=== PATIENT | female | born 2000 | race Caucasian/White ===

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

== ENCOUNTER 2019-07-28 03:20 | Inpatient (IN) ==
--- OUTSIDE RECORDS SUMMARY | 2019-07-28 03:23 | External Medical Summary | Continuity of Care Document ---
:2000 Author Name Adria Arreaga Address Unavailable Unavailable , Care Team Providers Name Role Phone Unavailable Unavailable Unavailable PCP, UNKNOWN Unavailable Unavailable Problems Active medical history not documented Allergies and Adverse Reactions Allergy history not documented Medications prednisoLONE Sodium Phosphate 30 MG Oral Tablet Disintegrating; parkinson as needed , Whitley Start: 08-Sep-2018 Refills: 0 ProAir RespiClick 108 (90 Base) MCG/ACT Inhalation Aerosol Powder Breath Activated; as directed as needed Whitley Start: 08-Sep-2018 Refills: 0 June FE 08/29 1-20 MG-MCG Oral Tablet; TAKE 1 TABLET DAILY. Whitley Start: 08-Sep-2018 Refills: 0 28 Tablet Pack Procedures Procedures not documented Immunizations Immunizations not documented Family History Grandmother Family history of hypertension (V17.49) (Z82.49) Status: Act perry aunt Family history of polycystic ovarian syndrome (V18.7) (Z84.2 ) Status: Active Grandfather Family history of diabetes mellitus (V18.0) (Z83.3) Status: Active Mother Family history of malignant neoplasm of breast (V16.3) (Z80. 3) Status: Active Grandmother Family history of malignant neoplasm of breast (V16.3) (Z80. 3) Status: Active Plan of Treatment Planned Observations Planned Goals not documented Results No Known Results Results not documented
[2019-07-28] MEDS ORDERED: KETOROLAC 30 MG/ML VIAL IV STA (03:57)
[2019-07-28] MEDS ORDERED: SODIUM CHLORIDE 0.9% 1000ML 1,000 ML IV ONE ×4 (03:57→16:45)
[2019-07-28 04:27] LABS: Basophils # (auto) 0.01 K/uL (0-0.2); Basophils % (auto) 0.1 %; Hematocrit (blood only) 38.6 % (37-47); Hemoglobin 12.6 g/dL (12.0-16.0); Immature Granulocytes # (auto) 0.09 K/uL (0.00-0.02); Immature Granulocytes % (auto) 0.5 %; Lymphocytes % (auto) 3.1 %; Mean Corpuscular Hemoglobin 28.2 pg (25-34); Mean Corpuscular Hgb Conc 32.6 g/dL (32-36); Mean Corpuscular Volume 86.4 fL (80-100); Mean Platelet Volume 10.3 fL (7.4-10.4); Monocytes # (auto) 0.82 K/uL (0.11-0.59); Monocytes % (auto) 4.2 %; Neutrophils # (auto) 17.89 K/uL (1.4-6.5); Neutrophils % (auto) 92.1 %; Platelet Count 233 K/uL (130-400); RDW Coefficient of Variation 14.6 % (11.5-14.5); RDW Standard Deviation 45.8 fL (36.4-46.3); Red Blood Count 4.47 M/uL (4.2-5.4); White Blood Count 19.41 K/uL (4.8-10.8)
[2019-07-28 04:44] LABS: Appearance Urine Cloudy (Clear); Bacteria Urine Automated 4+ (Negative); Bilirubin Urine Negative (Negative); Blood Urine 1+ (Negative); Color Urine Yellow; Epithelial Cell Urine Auto 0-5 /lpf (0-5); Glucose Urine UA Negative (Negative); Ketones Urine 2+ (Negative); Leukocyte Esterase Urine 2+ (Negative); Nitrite Urine Positive (Negative); Protein Urine Trace (Negative); RBC Urine Automated 0-4 /hpf (0-4); Specific Gravity Urine 1.013 (1.000-1.030); Urobilinogen Urine Negative (Negative); WBC Urine Automated >30 /hpf (0-5); pH Urine 5.5 (4.5-7.5)
[2019-07-28 04:47] LABS: Albumin Level 3.4 gm/dl (3.4-5.0); BUN Creatinine Ratio 8.4 (10-20); Calcium 8.7 mg/dl (8.5-10.1); Creatinine Clr Calc Pharmacy 69.7 ml/min; Est GFR (African American) 58.9; Est GFR (Non-African American) 50.9
[2019-07-28 04:50] LABS: Albumin Globulin Ratio 0.8 (0.9-2); Bilirubin,Total 1.7 mg/dl (0.2-1); Globulin 4.3 gm/dl (2.5-4.0); Total Protein 7.7 gm/dl (6.4-8.2)
[2019-07-28] MEDS ORDERED: SULFAMETHOXAZOLE/TRIMETHOPRIM DS 800/160MG TAB PO ONE (05:31)
[2019-07-28 05:53] LABS: Basophils # (auto) 0.01 K/uL (0-0.2); Hematocrit (blood only) 36.3 % (37-47); Hemoglobin 11.7 g/dL (12.0-16.0); Immature Granulocytes # (auto) 0.18 K/uL (0.00-0.02); Immature Granulocytes % (auto) 0.8 %; Lymphocytes # (auto) 0.79 K/uL (1.2-3.4); Lymphocytes % (auto) 3.5 %; Mean Corpuscular Hemoglobin 28.1 pg (25-34); Mean Corpuscular Hgb Conc 32.2 g/dL (32-36); Mean Corpuscular Volume 87.3 fL (80-100); Monocytes # (auto) 1.85 K/uL (0.11-0.59); Monocytes % (auto) 8.2 %; Neutrophils % (auto) 87.5 %; Platelet Count 223 K/uL (130-400); RDW Coefficient of Variation 14.6 % (11.5-14.5); Red Blood Count 4.16 M/uL (4.2-5.4); White Blood Count 22.53 K/uL (4.8-10.8)
[2019-07-28 06:19] LABS: Pregnancy Test, Urine Negative (Negative)
--- NOTE | 2019-07-28 06:38 | History & Physical Report ---
Date of Service July 28, 2019 Assessment & Plan (1) Pyelonephritis: Fevers/Chills/Rigors/right CVA tenderness and +UA, suspect pyelonephritis -Admit to medical floor -Follow cultures -CBC and BMP at 14:00 today -NSS at 125mL/hr x 2 liters -Tylenol as needed for pain or fever -Bactrim DS BID -If patient fails to improve would pursue imaging, CT Present on Admission?: Yes (2) Migraine: History of migraine. No WITT now -Monitor F/E/N - NSS at 125mL/hr x 2 liters, montior electrolytes and replete as needed, regular diet as tolerated Ppx - low risk for DVT Code - Full Dispo - Obs to medical floor Present on Admission?: Yes History of Present Illness Chief Complaint: fever, UTI Primary Care Provider: [facility] Sydney Osullivan is a 18yo C female with history of migraine presenting with possible pyelonephritis. Patient reports fevers at home for the last three days associated with chills/sweats/body aches and rigors. Also with nausea, headache, right suprapubic discomfort and right sided back pain. She denies dysuria/frequency/urgency. Had an episode of urinary incontinence prior to arrival to the ER. Last fever this evening, 104 F. ER Course: Toradol, NSS, Bactrim Allergies Allergy/AdvReac Type Severity Reaction Status Date / Time cefuroxime Allergy Mild Swelling Verified 07/28/19 04:08 and redness Home Medications Home Medications Medication Instructions Recorded Confirmed Type acetaminophen [Tylenol Extra 1,000 mg PO Q6H PRN 07/28/19 07/28/19 History Strength] drospirenone-ethinyl estradiol 1 tab PO DAILY 07/28/19 07/28/19 History ferrous sulfate [iron] 325 mg PO DAILY 07/28/19 07/28/19 History ibuprofen [Motrin IB] 400 mg PO Q6H PRN 07/28/19 07/28/19 History Past Med/Surg History Medical History (Updated 07/28/19 @ 06:35 by Shena Ramsay DO) Asthma (Chronic) childhood asthma. Now resolved Migraines Family History (Updated 07/28/19 @ 03:38 by Dennis Mirza) Other No significant family history Social History (Updated 07/28/19 @ 06:31 by Shena Ramsay DO) Preferred Language: Senegalese Feels Safe at Home: Yes Smoking Status: Never smoker Hx Alcohol Use: No Hx Substance Use: No Review of Systems Review of Systems: All systems reviewed & are unremarkable except as noted in HPI & below +Fevers/chills/nausea +body aches/rigors +Back pain/suprapubic pain Physical Exam Physical Exam: General: patient resting comfortably, NAD,ill in appearance, AA&O x 4 Skin: warm, intact, no rashes or lesions, clammy HEENT: NC/AT, PERRL, EOMI, anicteric sclera, conjunctiva without injection, external ear normal to inspection and nontender, nares patent, slightly dry mucus membranes, dentition intact, no oropharyngeal lesions, neck supple, trachea midline, no LAD, no thyromegaly, no JVD Heart: +S1/S2, regular, tachycardic, no m/r/g Lungs: equal air entry bilaterally, no rales/rhonchi/wheezes Abd: +BS, soft, ND, no masses/organomegaly/ascites, mild right suprapubic discomfort, no rebound/guarding/peritoneal signs, +right CVA tenderness Ext: warm, 2+ pulses in UE/LE bilaterally, no clubbing/cyanosis or edema Neuro: nonfocal, patient AA&O x 4, speech intact, no facial droop, moving all extremities on command with equal strength 5/5 Results & Data Vital Signs (Past 12 Hours) Vital Signs Temp Pulse Resp BP Pulse Ox 07/28/19 06:00 105 H 95/61 L 97 07/28/19 05:30 107 H 99/61 L 96 07/28/19 05:00 112 H 92/58 L 96 07/28/19 04:33 117 H 87/51 L 96 07/28/19 04:26 96 07/28/19 03:24 155 H 23 112/51 L 07/28/19 03:20 37.0 C 154 H 20 112/51 L 96 Laboratory Results Lab Results 07/28/19 07/28/19 07/28/19 Range/Units 04:07 04:07 04:07 WBC (4.8-10.8) K/uL RBC (4.2-5.4) M/uL Hgb (12.0-16.0) g/dL Hct (37-47) % MCV (80-100) fL MCH (25-34) pg MCHC (32-36) g/dL RDW Std Deviation (36.4-46.3) fL RDW Coeff of Mihai (11.5-14.5) % Plt Count (130-400) K/uL MPV (7.4-10.4) fL Immature Gran % (Auto) % Neut % (Auto) % Lymph % (Auto) % [place] % (Auto) % Eos % (Auto) % Baso % (Auto) % Immature Gran # (Auto) (0.00-0.02) K/uL Neut # (Auto) (1.4-6.5) K/uL Lymph # (Auto) (1.2-3.4) K/uL [place] # (Auto) (0.11-0.59) K/uL Eos # (Auto) (0-0.5) K/uL Baso # (Auto) (0-0.2) K/uL Sodium (136-145) mmol/L Potassium (3.5-5.1) mmol/L Chloride (98-107) mmol/L Carbon Dioxide (21-32) mmol/L Anion Gap (3-11) BUN (7-18) mg/dl Creatinine (0.6-1.2) mg/dl Est Cr Clr Drug Dosing ml/min Est GFR ( Amer) Est GFR (Non-Af Amer) BUN/Creatinine Ratio (10-20) Glucose (70-99) mg/dl POC Lactic Acid Earle (0.90-1.70) mmol/L Calcium (8.5-10.1) mg/dl Total Bilirubin (0.2-1) mg/dl AST (15-37) U/L ALT (12-78) U/L Alkaline Phosphatase (45-117) U/L Total Protein (6.4-8.2) gm/dl Albumin (3.4-5.0) gm/dl Globulin (2.5-4.0) gm/dl Albumin/Globulin Ratio (0.9-2) Urine Color Yellow Urine Appearance Cloudy A (Clear) Urine pH 5.5 (4.5-7.5) Ur Specific [place] 1.013 (1.000-1.030) Urine Protein Trace H (Negative) Urine Glucose (UA) Negative (Negative) Urine Ketones 2+ H (Negative) Urine Blood 1+ H (Negative) Urine Nitrite Positive A (Negative) Urine Bilirubin Negative (Negative) Urine Urobilinogen Negative (Negative) Ur Leukocyte Esterase 2+ H (Negative) Urine WBC (Auto) >30 H (0-5) /hpf Urine RBC (Auto) 0-4 (0-4) /hpf U Hyaline Cast (Auto) 1-5 (0-5) /lpf U Epithel Cells (Auto) 0-5 (0-5) /lpf Urine Bacteria (Auto) 4+ H (Negative) Urine Test Negative (Negative) Influenza Type A Ag Neg for Influ A (Neg) Influenza Type B Ag Neg for Influ B (Neg) 07/28/19 07/28/19 07/28/19 Range/Units 04:13 04:14 04:14 WBC 19.41 H (4.8-10.8) K/uL RBC 4.47 (4.2-5.4) M/uL Hgb 12.6 (12.0-16.0) g/dL Hct 38.6 (37-47) % MCV 86.4 (80-100) fL MCH 28.2 (25-34) pg MCHC 32.6 (32-36) g/dL RDW Std Deviation 45.8 (36.4-46.3) fL RDW Coeff of Mihai 14.6 H (11.5-14.5) % Plt Count 233 (130-400) K/uL MPV 10.3 (7.4-10.4) fL Immature Gran % (Auto) 0.5 % Neut % (Auto) 92.1 % Lymph % (Auto) 3.1 % [place] % (Auto) 4.2 % Eos % (Auto) 0.0 % Baso % (Auto) 0.1 % Immature Gran # (Auto) 0.09 H (0.00-0.02) K/uL Neut # (Auto) 17.89 H (1.4-6.5) K/uL Lymph # (Auto) 0.60 L (1.2-3.4) K/uL [place] # (Auto) 0.82 H (0.11-0.59) K/uL Eos # (Auto) 0.00 (0-0.5) K/uL Baso # (Auto) 0.01 (0-0.2) K/uL Sodium 133 L (136-145) mmol/L Potassium 4.0 (3.5-5.1) mmol/L Chloride 103 (98-107) mmol/L Carbon Dioxide 25 (21-32) mmol/L Anion Gap 5.0 (3-11) BUN 12 (7-18) mg/dl Creatinine 1.47 H (0.6-1.2) mg/dl Est Cr Clr Drug Dosing 69.7 ml/min Est GFR ( Amer) 58.9 Est GFR (Non-Af Amer) 50.9 BUN/Creatinine Ratio 8.4 L (10-20) Glucose 121 H (70-99) mg/dl POC Lactic Acid Earle 1.36 (0.90-1.70) mmol/L Calcium 8.7 (8.5-10.1) mg/dl Total Bilirubin 1.7 H (0.2-1) mg/dl AST 20 (15-37) U/L ALT 25 (12-78) U/L Alkaline Phosphatase 79 (45-117) U/L Total Protein 7.7 (6.4-8.2) gm/dl Albumin 3.4 (3.4-5.0) gm/dl Globulin 4.3 H (2.5-4.0) gm/dl Albumin/Globulin Ratio 0.8 L (0.9-2) Urine Color Urine Appearance (Clear) Urine pH (4.5-7.5) Ur Specific [place] (1.000-1.030) Urine Protein (Negative) Urine Glucose (UA) (Negative) Urine Ketones (Negative) Urine Blood (Negative) Urine Nitrite (Negative) Urine Bilirubin (Negative) Urine Urobilinogen (Negative) Ur Leukocyte Esterase (Negative) Urine WBC (Auto) (0-5) /hpf Urine RBC (Auto) (0-4) /hpf U Hyaline Cast (Auto) (0-5) /lpf U Epithel Cells (Auto) (0-5) /lpf Urine Bacteria (Auto) (Negative) Urine Test (Negative) Influenza Type A Ag (Neg) Influenza Type B Ag (Neg) 07/28/19 07/28/19 Range/Units 05:35 05:41 WBC 22.53 H (4.8-10.8) K/uL RBC 4.16 L (4.2-5.4) M/uL Hgb 11.7 L (12.0-16.0) g/dL Hct 36.3 L (37-47) % MCV 87.3 (80-100) fL MCH 28.1 (25-34) pg MCHC 32.2 (32-36) g/dL RDW Std Deviation 47.0 H (36.4-46.3) fL RDW Coeff of Mihai 14.6 H (11.5-14.5) % Plt Count 223 (130-400) K/uL MPV 10.0 (7.4-10.4) fL Immature Gran % (Auto) 0.8 % Neut % (Auto) 87.5 % Lymph % (Auto) 3.5 % [place] % (Auto) 8.2 % Eos % (Auto) 0.0 % Baso % (Auto) 0.0 % Immature Gran # (Auto) 0.18 H (0.00-0.02) K/uL Neut # (Auto) 19.70 H (1.4-6.5) K/uL Lymph # (Auto) 0.79 L (1.2-3.4) K/uL [place] # (Auto) 1.85 H (0.11-0.59) K/uL Eos # (Auto) 0.00 (0-0.5) K/uL Baso # (Auto) 0.01 (0-0.2) K/uL Sodium (136-145) mmol/L Potassium (3.5-5.1) mmol/L Chloride (98-107) mmol/L Carbon Dioxide (21-32) mmol/L Anion Gap (3-11) BUN (7-18) mg/dl Creatinine (0.6-1.2) mg/dl Est Cr Clr Drug Dosing ml/min Est GFR ( Amer) Est GFR (Non-Af Amer) BUN/Creatinine Ratio (10-20) Glucose (70-99) mg/dl POC Lactic Acid Earle 0.90 (0.90-1.70) mmol/L Calcium (8.5-10.1) mg/dl Total Bilirubin (0.2-1) mg/dl AST (15-37) U/L ALT (12-78) U/L Alkaline Phosphatase (45-117) U/L Total Protein (6.4-8.2) gm/dl Albumin (3.4-5.0) gm/dl Globulin (2.5-4.0) gm/dl Albumin/Globulin Ratio (0.9-2) Urine Color Urine Appearance (Clear) Urine pH (4.5-7.5) Ur Specific [place] (1.000-1.030) Urine Protein (Negative) Urine Glucose (UA) (Negative) Urine Ketones (Negative) Urine Blood (Negative) Urine Nitrite (Negative) Urine Bilirubin (Negative) Urine Urobilinogen (Negative) Ur Leukocyte Esterase (Negative) Urine WBC (Auto) (0-5) /hpf Urine RBC (Auto) (0-4) /hpf U Hyaline Cast (Auto) (0-5) /lpf U Epithel Cells (Auto) (0-5) /lpf Urine Bacteria (Auto) (Negative) Urine Test (Negative) Influenza Type A Ag (Neg) Influenza Type B Ag (Neg) Diagnostic Findings CXR - no acute process Code Status & VTE Plan Code Status FULL PG Care Time/CCT Total # of Minutes Spent Total Time Spent with Patient: Total time spent is greater than 50% in coordination of care (as documented) at patient's floor/unit and/or counseling patient:
--- NOTE | 2019-07-28 07:20 | XRay Report ---
XR chest 1V portable HISTORY: Sepsis COMPARISON: Chest 05/07/2017. FINDINGS: The lungs are clear. Cardiac silhouette is normal in size. No pleural effusions. No pneumot horax. IMPRESSION: No acute process. ACT 112: Negative or not required by law. Electronically signed by: Alexey Trevizo M.D. 07/28/2019 7:19 AM
--- NOTE | 2019-07-28 07:25 | Emergency Department Note ---
Entered by Dennis Mirza acting as a scribe for Suzy Weir DO History of Present Illness General Chief complaint: Flu Like Symptoms Stated complaint: illness Time Seen by Provider: 07/28/19 03:22 Source: patient History of Present Illness Onset (ago): day(s) 3 Pain Consistency: + constant Maximum Pain Intensity: 5 Quality: + other (fever) Associated symptoms: + other (Positive for chills, dizziness, vomiting, urinary incontinence, headache, and sensitivity to light. Negative for sneezing and a cough.) The patient is a 18 year old female who presents to the emergency department with complaints of a constant fever beginning three days ago. The patient states that she has had a fever for the last three days that reached a high of 102. She notes that she woke up thirty minutes ago with a high fever and chills. She reports that she then became dizzy while waiting for the uber to the emergency department. The patient states that she then had an episode of vomiting and she notes that she had urinary incontinence at that time. She also complains of a headache and sensitivity to light. She denies any sneezing and coughing. She reports that she has been taking Tylenol and Motrin with no relief of her symptoms. The patient states that she has a history of migraines. She denies any known sick contacts. Home Medications Home Medications Medication Instructions Recorded Confirmed Type acetaminophen [Tylenol Extra 1,000 mg PO Q6H PRN 07/28/19 07/28/19 History Strength] drospirenone-ethinyl estradiol 1 tab PO DAILY 07/28/19 07/28/19 History ferrous sulfate [iron] 325 mg PO DAILY 07/28/19 07/28/19 History ibuprofen [Motrin IB] 400 mg PO Q6H PRN 07/28/19 07/28/19 History Allergies Allergy/AdvReac Type Severity Reaction Status Date / Time cefuroxime Allergy Mild Swelling Verified 07/28/19 04:08 and redness Past Med/Surg History Medical History (Updated 07/28/19 @ 06:35 by Shena Ramsay DO) Asthma (Chronic) childhood asthma. Now resolved Migraines Family History (Updated 07/28/19 @ 03:38 by Dennis Mirza) Other No significant family history Social History (Updated 07/28/19 @ 06:31 by ARON Villareal Preferred Language: Ghanaian Communication Ability: Effective Chain Builder Required: No Beliefs That Will Affect Care: None Current Living Situation: Other Current Living Situation Comment: roommate at [employer] Other Information That Helps Us Care for You: No Feels Safe at Home: Yes Safety Concerns: Feels Safe At This Time Smoking Status: Never smoker Do You Dip or Chew Tobacco: No ; Second Hand Exposure: No ; Tobacco Cessation Education Requested by Patient: No Hx Alcohol Use: No Hx Substance Use: No Review of Systems See HPI for pertinent positives & negatives. and A total of 10 systems reviewed and were otherwise negative Physical Exam Vital Signs Vital Signs - 24 hr 07/28/19 03:20 07/28/19 03:24 07/28/19 04:26 Temperature 37.0 C Temperature Source Oral Pulse Rate 154 H 155 H Pulse Rate from SpO2 Sensor Respiratory Rate 20 23 Respiratory Depth Normal Blood Pressure 112/51 L 112/51 L Blood Pressure Mean 71 63 Pulse Oximetry 96 96 Oxygen Delivery Method Room Air Room Air Sepsis Recent Fever Within 48 Hours Yes Sepsis New/Unexplained Change in Mental Status No Sepsis Action Taken by Nursing No Action Required 07/28/19 04:33 07/28/19 05:00 07/28/19 05:30 Temperature Temperature Source Pulse Rate 117 H 112 H 107 H Pulse Rate from SpO2 Sensor 117 H 112 H 107 H Respiratory Rate Respiratory Depth Blood Pressure 87/51 L 92/58 L 99/61 L Blood Pressure Mean 62 70 74 Pulse Oximetry 96 96 96 Oxygen Delivery Method Sepsis Recent Fever Within 48 Hours Sepsis New/Unexplained Change in Mental Status Sepsis Action Taken by Nursing 07/28/19 06:00 Temperature Temperature Source Pulse Rate 105 H Pulse Rate from SpO2 Sensor 106 H Respiratory Rate Respiratory Depth Blood Pressure 95/61 L Blood Pressure Mean 81 Pulse Oximetry 97 Oxygen Delivery Method Sepsis Recent Fever Within 48 Hours Sepsis New/Unexplained Change in Mental Status Sepsis Action Taken by Nursing HEENT: Head - normocephalic and atraumatic Pupils are equal, round, and reactive to light. Extraocular eye muscles are intact, and sclera are anicteric. Nose - moist nasal mucosa without discharge. Mouth - moist buccal mucosa. Oropharynx is nonerythematous and there is no tonsillar exudate or edema noted. Neck: Supple; no cervical lymphadenopathy or nuchal rigidity Heart: Regular rhythm and tachycardic. There is a normal S1 and S2 with no murmurs, clicks, or gallops appreciated. Lungs: Clear to auscultation bilaterally with no wheezes, rales, or rhonchi. Abdomen: Soft, completely nontender, nondistended, with good bowel sounds. There are no palpable pulsatile masses or hepatosplenomegaly. There is no guarding, rigidity, or rebound noted. Extremities: No evidence of cyanosis, clubbing, or edema. There are easily palpable peripheral pulses. Skin: warm with good turgor and no rashes, diaphoretic Course Course 0328: The patient was evaluated in room B9. A complete history and physical examination were performed. Nursing notes and previous electronic medical records were reviewed. IV lock was established and labs were drawn as above. A septic protocol was performed. 0421: Sodium Chloride 1000 mls @ 999 mls/hr IV, Ketorolac Tromethamine 30mg IV 0457: I rechecked the patient. Her heart rate is down. She is feeling better and is drinking water. She will receive another liter of saline. 0535: I reevaluated the patient. She is asleep. I woke her up and she is feeling somewhat better. 0546: I rechecked the patient. Her lactic went from 1.36 to 0.9. 0548: Trimethoprim/Sulfamethoxazole 1 tab PO, Sodium Chloride 1000 mls @ 999 mls/hr IV. The patient's repeat white blood cell count had increased from 19,000-22,000. 0605: Upon reevaluation, the patient is stable. I discussed the findings and the treatment plan with the patient. She expresses agreement and understanding. I spoke with Dr. Ramsay of the [facility]. The patient will be evaluated for further management. Consultations Consultation #1: I reviewed the patient's case with Dr. Ramsay - Hospitalist, [facility]. She will evaluate the patient for further management. Time: 06:05 Administered Medications Discontinued Medications Sodium Chloride (Nss 1000ml) 1,000 mls @ 999 mls/hr IV .Q1H1M ONE Stop: 07/28/19 04:57 Last Infusion: 07/28/19 05:23 Dose: 0 mls/hr Documented by: [id number] Admin: 07/28/19 04:21 Dose: 999 mls/hr Documented by: [id number] Sodium Chloride (Nss 1000ml) 1,000 mls @ 999 mls/hr IV .Q1H1M ONE Stop: 07/28/19 06:35 Last Admin: 07/28/19 05:48 Dose: 999 mls/hr Documented by: [id number] Ketorolac Tromethamine (Toradol) 30 mg IV NOW STA Stop: 07/28/19 03:58 Last Admin: 07/28/19 04:21 Dose: 30 mg Documented by: [id number] Trimethoprim/Sulfamethoxazole (Septra Ds 800/160mg Tab) 1 tab PO NOW ONE Stop: 07/28/19 05:32 Last Admin: 07/28/19 05:48 Dose: 1 tab Documented by: [id number] Critical Care Time Critical Care Time: Yes Total Critical Care Time: 70 I have personally spent 70 minutes of critical care time in the direct management of this patient. This includes bedside care, interpretation of diagnostic studies, and testing, discussion with consultants, patient, and family members, and other required patient management activities. This 70 minutes is in excess of all separately billable procedures. Medical Decision Making Differential Diagnosis Differential diagnoses include: sepsis, influenza, pneumonia, UTI, gastritis, and meningitis. Medical Records Attestation: I reviewed the patient's medical records. Home Medications Current Medication List: was personally reviewed by me Laboratory Data Attestation: I reviewed the patient's lab results. Result diagrams: 07/28/19 05:35 07/28/19 04:14 Lab Results 07/28/19 07/28/19 07/28/19 Range/Units 04:07 04:07 04:07 WBC (4.8-10.8) K/uL RBC (4.2-5.4) M/uL Hgb (12.0-16.0) g/dL Hct (37-47) % MCV (80-100) fL MCH (25-34) pg MCHC (32-36) g/dL RDW Std Deviation (36.4-46.3) fL RDW Coeff of Mihai (11.5-14.5) % Plt Count (130-400) K/uL MPV (7.4-10.4) fL Immature Gran % (Auto) % Neut % (Auto) % Lymph % (Auto) % Chester % (Auto) % Eos % (Auto) % Baso % (Auto) % Immature Gran # (Auto) (0.00-0.02) K/uL Neut # (Auto) (1.4-6.5) K/uL Lymph # (Auto) (1.2-3.4) K/uL Chester # (Auto) (0.11-0.59) K/uL Eos # (Auto) (0-0.5) K/uL Baso # (Auto) (0-0.2) K/uL Sodium (136-145) mmol/L Potassium (3.5-5.1) mmol/L Chloride (98-107) mmol/L Carbon Dioxide (21-32) mmol/L Anion Gap (3-11) BUN (7-18) mg/dl Creatinine (0.6-1.2) mg/dl Est Cr Clr Drug Dosing ml/min Est GFR ( Amer) Est GFR (Non-Af Amer) BUN/Creatinine Ratio (10-20) Glucose (70-99) mg/dl POC Lactic Acid Earle (0.90-1.70) mmol/L Calcium (8.5-10.1) mg/dl Total Bilirubin (0.2-1) mg/dl AST (15-37) U/L ALT (12-78) U/L Alkaline Phosphatase (45-117) U/L Total Protein (6.4-8.2) gm/dl Albumin (3.4-5.0) gm/dl Globulin (2.5-4.0) gm/dl Albumin/Globulin Ratio (0.9-2) Urine Color Yellow Urine Appearance Cloudy A (Clear) Urine pH 5.5 (4.5-7.5) Ur Specific [place] 1.013 (1.000-1.030) Urine Protein Trace H (Negative) Urine Glucose (UA) Negative (Negative) Urine Ketones 2+ H (Negative) Urine Blood 1+ H (Negative) Urine Nitrite Positive A (Negative) Urine Bilirubin Negative (Negative) Urine Urobilinogen Negative (Negative) Ur Leukocyte Esterase 2+ H (Negative) Urine WBC (Auto) >30 H (0-5) /hpf Urine RBC (Auto) 0-4 (0-4) /hpf U Hyaline Cast (Auto) 1-5 (0-5) /lpf U Epithel Cells (Auto) 0-5 (0-5) /lpf Urine Bacteria (Auto) 4+ H (Negative) Urine Test Negative (Negative) Influenza Type A Ag Neg for Influ A (Neg) Influenza Type B Ag Neg for Influ B (Neg) 07/28/19 07/28/19 07/28/19 Range/Units 04:13 04:14 04:14 WBC 19.41 H (4.8-10.8) K/uL RBC 4.47 (4.2-5.4) M/uL Hgb 12.6 (12.0-16.0) g/dL Hct 38.6 (37-47) % MCV 86.4 (80-100) fL MCH 28.2 (25-34) pg MCHC 32.6 (32-36) g/dL RDW Std Deviation 45.8 (36.4-46.3) fL RDW Coeff of Mihai 14.6 H (11.5-14.5) % Plt Count 233 (130-400) K/uL MPV 10.3 (7.4-10.4) fL Immature Gran % (Auto) 0.5 % Neut % (Auto) 92.1 % Lymph % (Auto) 3.1 % Chester % (Auto) 4.2 % Eos % (Auto) 0.0 % Baso % (Auto) 0.1 % Immature Gran # (Auto) 0.09 H (0.00-0.02) K/uL Neut # (Auto) 17.89 H (1.4-6.5) K/uL Lymph # (Auto) 0.60 L (1.2-3.4) K/uL Chester # (Auto) 0.82 H (0.11-0.59) K/uL Eos # (Auto) 0.00 (0-0.5) K/uL Baso # (Auto) 0.01 (0-0.2) K/uL Sodium 133 L (136-145) mmol/L Potassium 4.0 (3.5-5.1) mmol/L Chloride 103 (98-107) mmol/L Carbon Dioxide 25 (21-32) mmol/L Anion Gap 5.0 (3-11) BUN 12 (7-18) mg/dl Creatinine 1.47 H (0.6-1.2) mg/dl Est Cr Clr Drug Dosing 69.7 ml/min Est GFR ( Amer) 58.9 Est GFR (Non-Af Amer) 50.9 BUN/Creatinine Ratio 8.4 L (10-20) Glucose 121 H (70-99) mg/dl POC Lactic Acid Earle 1.36 (0.90-1.70) mmol/L Calcium 8.7 (8.5-10.1) mg/dl Total Bilirubin 1.7 H (0.2-1) mg/dl AST 20 (15-37) U/L ALT 25 (12-78) U/L Alkaline Phosphatase 79 (45-117) U/L Total Protein 7.7 (6.4-8.2) gm/dl Albumin 3.4 (3.4-5.0) gm/dl Globulin 4.3 H (2.5-4.0) gm/dl Albumin/Globulin Ratio 0.8 L (0.9-2) Urine Color Urine Appearance (Clear) Urine pH (4.5-7.5) Ur Specific [place] (1.000-1.030) Urine Protein (Negative) Urine Glucose (UA) (Negative) Urine Ketones (Negative) Urine Blood (Negative) Urine Nitrite (Negative) Urine Bilirubin (Negative) Urine Urobilinogen (Negative) Ur Leukocyte Esterase (Negative) Urine WBC (Auto) (0-5) /hpf Urine RBC (Auto) (0-4) /hpf U Hyaline Cast (Auto) (0-5) /lpf U Epithel Cells (Auto) (0-5) /lpf Urine Bacteria (Auto) (Negative) Urine Test (Negative) Influenza Type A Ag (Neg) Influenza Type B Ag (Neg) 07/28/19 07/28/19 Range/Units 05:35 05:41 WBC 22.53 H (4.8-10.8) K/uL RBC 4.16 L (4.2-5.4) M/uL Hgb 11.7 L (12.0-16.0) g/dL Hct 36.3 L (37-47) % MCV 87.3 (80-100) fL MCH 28.1 (25-34) pg MCHC 32.2 (32-36) g/dL RDW Std Deviation 47.0 H (36.4-46.3) fL RDW Coeff of Mihai 14.6 H (11.5-14.5) % Plt Count 223 (130-400) K/uL MPV 10.0 (7.4-10.4) fL Immature Gran % (Auto) 0.8 % Neut % (Auto) 87.5 % Lymph % (Auto) 3.5 % Chester % (Auto) 8.2 % Eos % (Auto) 0.0 % Baso % (Auto) 0.0 % Immature Gran # (Auto) 0.18 H (0.00-0.02) K/uL Neut # (Auto) 19.70 H (1.4-6.5) K/uL Lymph # (Auto) 0.79 L (1.2-3.4) K/uL Chester # (Auto) 1.85 H (0.11-0.59) K/uL Eos # (Auto) 0.00 (0-0.5) K/uL Baso # (Auto) 0.01 (0-0.2) K/uL Sodium (136-145) mmol/L Potassium (3.5-5.1) mmol/L Chloride (98-107) mmol/L Carbon Dioxide (21-32) mmol/L Anion Gap (3-11) BUN (7-18) mg/dl Creatinine (0.6-1.2) mg/dl Est Cr Clr Drug Dosing ml/min Est GFR ( Amer) Est GFR (Non-Af Amer) BUN/Creatinine Ratio (10-20) Glucose (70-99) mg/dl POC Lactic Acid Earle 0.90 (0.90-1.70) mmol/L Calcium (8.5-10.1) mg/dl Total Bilirubin (0.2-1) mg/dl AST (15-37) U/L ALT (12-78) U/L Alkaline Phosphatase (45-117) U/L Total Protein (6.4-8.2) gm/dl Albumin (3.4-5.0) gm/dl Globulin (2.5-4.0) gm/dl Albumin/Globulin Ratio (0.9-2) Urine Color Urine Appearance (Clear) Urine pH (4.5-7.5) Ur Specific [place] (1.000-1.030) Urine Protein (Negative) Urine Glucose (UA) (Negative) Urine Ketones (Negative) Urine Blood (Negative) Urine Nitrite (Negative) Urine Bilirubin (Negative) Urine Urobilinogen (Negative) Ur Leukocyte Esterase (Negative) Urine WBC (Auto) (0-5) /hpf Urine RBC (Auto) (0-4) /hpf U Hyaline Cast (Auto) (0-5) /lpf U Epithel Cells (Auto) (0-5) /lpf Urine Bacteria (Auto) (Negative) Urine Test (Negative) Influenza Type A Ag (Neg) Influenza Type B Ag (Neg) Imaging Data Attestation: I personally reviewed and interpreted this imaging study as follows: My Impression: CHEST X-RAY: No pulmonary infiltrate or consolidation. ECG Data Attestation: I personally reviewed and interpreted this ECG as follows: Indication: + vomiting Rate (beats per minute): 148 Rhythm: + sinus tachycardia ECG ST segments: no ST depression and no ST elevation ECG Findings: no PACs and no PVCs Blood Pressure Blood Pressure Findings: Low blood pressure Blood Pressure Disposition: further management by hospitalist ALEXIA Prince The patient is a 18 year old female who presents to the emergency department with complaints of a constant fever beginning three days ago. The patient describes diffuse body aches and a headache. The patient had decided to come to the emergency department because of her symptoms. While she was waiting for an Uber, she had an episode of vomiting and urinary incontinence. At that point, EMS was called and she was transported here. Upon arrival, the patient was extremely tachycardic and became hypotensive. She was given 2 L of normal saline solution. Her initial lactic acid was 1.3 and initial white blood cell count was 19,000. Urinalysis revealed that she has evidence of urinary tract infection. Flu testing was negative. Chest x-ray was negative. The patient remained in the emergency department for some time and the lactic acid and white blood cell count were repeated. The lactate came down but the white cell count increased. The patient has an allergy to cephalosporins. She received an oral dose of Bactrim. The patient's creatinine more than doubled and her presentation was concerning for sepsis. I discussed the case with the [facility] Hospitalist and they will evaluate for further management. Impression & Plan Sepsis, UTI (urinary tract infection), Hypotension, Renal insufficiency Discharge Plan Visit Data Chief Complaint: Flu Like Symptoms Stated Complaint: illness ED Provider: Suzy Weir Discharge Problem: Sepsis, UTI (urinary tract infection), Hypotension, Renal insufficiency Patient Disposition: Being Evaluated by Hospitalist Discharge Instructions Interventions: ED Discharge Assessment Last Done: 07/28/19 06:37 Discharge Problem: Sepsis Qualifiers: Sepsis type: sepsis due to unspecified organism Sepsis acute organ dysfunction status: unspecified Qualified Code(s): A41.9 - Sepsis, unspecified organism UTI (urinary tract infection) Qualifiers: Urinary tract infection type: site unspecified Hematuria presence: without hematuria Qualified Code(s): N39.0 - Urinary tract infection, site not specified Hypotension Qualifiers: Hypotension type: unspecified hypotension type Qualified Code(s): I95.9 - Hypotension, unspecified The scribe's documentation has been prepared under my direction and personally reviewed by me in its entirety. I confirm that the note above accurately reflects all work, treatment, procedures, and medical decision making performed by me.
[2019-07-28] MEDS: SODIUM CHLORIDE 0.9% 1000ML 1,000 ML IV SCH ×2 (07:44→12:10)
[2019-07-28] MEDS: FERROUS SULFATE 325 MG TAB PO SCH (08:36)
[2019-07-28] MEDS: ERTAPENEM SODIUM 1,000 MG in SODIUM CHLORIDE 0.9% 50 ML IV SCH (12:10)
[2019-07-28] MEDS: ACETAMINOPHEN 500 MG TAB PO PRN ×2 (12:48→19:43)
--- NOTE | 2019-07-28 13:20 | Ultrasound Report ---
RENAL ULTRASOUND CLINICAL HISTORY: Right flank pain. COMPARISON STUDY: None. TECHNIQUE: Sonography of the kidneys and the urinary bladder was performed. FINDINGS: The right kidney measures 11.5 cm in maximal dimension and the left measures 13 cm. There i s no hydronephrosis. No calculi or masses are identified. Renal echogenicity, size and cortical thick ness are normal. There is no renal abscess. Bladder is suboptimally assessed given underdistention bu t no abnormalities identified. IMPRESSION: Unremarkable renal ultrasound. No hydronephrosis. ACT 112: Negative or not required by law. Electronically signed by: Ran Brice M.D. 07/28/2019 1:19 PM
[2019-07-28 14:37] LABS: Basophils # (auto) 0.01 K/uL (0-0.2); Basophils % (auto) 0.1 %; Eosinophils # (auto) 0.02 K/uL (0-0.5); Eosinophils % (auto) 0.1 %; Hematocrit (blood only) 32.9 % (37-47); Hemoglobin 10.7 g/dL (12.0-16.0); Immature Granulocytes # (auto) 0.02 K/uL (0.00-0.02); Immature Granulocytes % (auto) 0.1 %; Lymphocytes # (auto) 0.88 K/uL (1.2-3.4); Lymphocytes % (auto) 6.5 %; Mean Corpuscular Hemoglobin 27.8 pg (25-34); Mean Corpuscular Hgb Conc 32.5 g/dL (32-36); Mean Corpuscular Volume 85.5 fL (80-100); Mean Platelet Volume 10.2 fL (7.4-10.4); Monocytes # (auto) 0.36 K/uL (0.11-0.59); Monocytes % (auto) 2.7 %; Neutrophils % (auto) 90.5 %; Platelet Count 184 K/uL (130-400); RDW Coefficient of Variation 14.9 % (11.5-14.5); RDW Standard Deviation 46.6 fL (36.4-46.3); Red Blood Count 3.85 M/uL (4.2-5.4); White Blood Count 13.49 K/uL (4.8-10.8)
[2019-07-28 15:03] LABS: BUN Creatinine Ratio 14.1 (10-20); Calcium 8.9 mg/dl (8.5-10.1); Creatinine Clr Calc Pharmacy 102.3 ml/min; Est GFR (African American) 96.2; Potassium 4.1 mmol/L (3.5-5.1)
[2019-07-28] MEDS ORDERED: Nursing to Pharmacy Communication ONE (16:28)
[2019-07-28] MEDS: IBUPROFEN 800 MG TAB PO PRN (17:19)
[2019-07-28] MEDS: ALBUTEROL 0.083% NEBU SOLN 3 ML VIAL NEB PRN (17:50)
[2019-07-28] MEDS ORDERED: SULFAMETHOXAZOLE/TRIMETHOPRIM DS 800/160MG TAB PO SCH (18:00)
--- NOTE | 2019-07-28 18:35 | Hospitalist Progress Note ---
Date of Service July 28, 2019 Assessment & Plan (1) Pyelonephritis: Right sided pyelonephritis. With sepsis. Broaden antibiotics to ertapenem (using such due to cephalosporin allergy) and daptomycin IV (to cover for possibility of enterococcus). Gave additional saline boluses through the day today due to low-normal BP in setting of sepsis. Continue supportive care. Counseled patient that she likely will feel poorly at least for another 48 hours before starting to improve. Follow blood/urine cx's. In light of sepsis, low-normal BPs, etc will fully admit from observation status & place on telemetry. (2) Sepsis: Borderline severe sepsis. Source - urine (UTI/pyelo). No pneumonia or influenza based on testing this am. s/p 2 fluid boluses today. Continue copious hydration. BPs are low-normal but repeat BMP and CBC this afternoon are improved including MARY. Broad-spectrum IV antibiotics. Follow cultures. Low threshold for higher level of care with any worsening. Pt complained of mild dyspnea and chest tightness this evening; will repeat her cxr to ensure no pneumonia or other pathology. Rechecking flu but obtaining PCR test. (3) Hypotension: as above in "pyelonephritis" and "sepsis" (4) Acute kidney injury: Improved/resolved with fluids & supportive care. BMP am. Renal u/s w/o obstruction or stones. (5) Migraine: imitrex 50mg po q2h prn motrin 800mg q6h prn tylenol prn (6) Asthma: Dyspnea, chest tightness could be her asthma. Albuterol prn. Patient started on OCPs 3-4 days ago thus limited # of doses. Doubt PE. However, if any pulmonary symptoms worsen consider CTA chest. EKG this am with sinus tach only. (7) Total bilirubin, elevated: Could be Gilbert's. Repeat later in stay. No signs/symptoms of biliary tract pathology. (8) DVT prophylaxis: in light of OCP use - lovenox 40mg daily mother updated by phone at 7pm, 07/28/19 (permission obtained from patient to speak with mother) plan of care signed out to geographic information system surveyor physician patient to be admitted to full admission status Subjective Pt seen multiple times today. First visit was on late AM rounds. Was sitting in bed watching TV; boyfriend at bedside. c/o mild headache at that time and mild right flank pain. [place] better than at time of ER presentation. Appetite is poor however. Saw patient later in afternoon. c/o myalgias, worsening headache, rigors, and simply feeling poorly. Gave 2 saline boluses throughout the day today due to low-normal BPs in the 90- 95 range. Urine quite concentrated per patient. Labs were repeated - Cr normalized, WBC count improved. Renal u/s w/o obstruction or obvious stones. Pt reports taking meds for migraine headaches about 1x/month. She also started on OCPs about 3-4 days ago for menorrhagia. She previously took an antidepressant but is no longer doing so. Right flank pain started on Thursday of this week. Review of Systems Constitutional: + fever, + chills, + body aches, + fatigue and + anorexia Respiratory: + cough and + dyspnea (mild - started this evening) Cardiovascular: + chest pain (tightness - worse with cough) Gastrointestinal: + abdominal pain (right flank) and + nausea Genitourinary: no dysuria and no hematuria Physical Exam Constitutional: + acute distress (rigors, feels poorly) and + ill appearing; no altered mental status ENMT: Mouth: + dry oral mucous membranes Respiratory: normal respiratory effort, lungs clear to auscultation Cardiovascular: Rate/Rhythm: regular rhythm and + tachycardic Heart Sounds: normal S1 and normal S2; no murmur Vessels: posterior tibial pulses present and dorsalis pedis pulses present; no JVD Extremities: no edema Gastrointestinal (Abdomen): Inspection/Auscultation: normal bowel sounds; abdomen not distended Percussion/Palpation: + abdomen tender (right flank (mild)) and abdomen soft; no hepatosplenomegaly Skin: flushed Psychiatric: A+Ox3, euthymic affect Results & Data Vital Signs (Past 12 Hours) Vital Signs Temp Pulse Pulse Resp BP Pulse Ox 07/28/19 17:52 121 H 22 93 07/28/19 15:53 37.0 C 91 H 18 95/61 L 97 07/28/19 06:48 36.9 C 108 H 18 94/60 L 97 Laboratory Results Laboratory Results - last 24 hr 07/28/19 07/28/19 07/28/19 04:07 04:07 04:07 WBC RBC Hgb Hct MCV MCH MCHC RDW Std Deviation RDW Coeff of Mihai Plt Count MPV Immature Gran % (Auto) Neut % (Auto) Lymph % (Auto) Turner % (Auto) Eos % (Auto) Baso % (Auto) Immature Gran # (Auto) Neut # (Auto) Lymph # (Auto) Turner # (Auto) Eos # (Auto) Baso # (Auto) Sodium Potassium Chloride Carbon Dioxide Anion Gap BUN Creatinine Est Cr Clr Drug Dosing Est GFR ( Amer) Est GFR (Non-Af Amer) BUN/Creatinine Ratio Glucose POC Lactic Acid Earle Calcium Total Bilirubin AST ALT Alkaline Phosphatase Total Protein Albumin Globulin Albumin/Globulin Ratio Urine Color Yellow Urine Appearance Cloudy A Urine pH 5.5 Ur Specific Dameron 1.013 Urine Protein Trace H Urine Glucose (UA) Negative Urine Ketones 2+ H Urine Blood 1+ H Urine Nitrite Positive A Urine Bilirubin Negative Urine Urobilinogen Negative Ur Leukocyte Esterase 2+ H Urine WBC (Auto) >30 H Urine RBC (Auto) 0-4 U Hyaline Cast (Auto) 1-5 U Epithel Cells (Auto) 0-5 Urine Bacteria (Auto) 4+ H Urine Test Negative Influenza Type A Ag Neg for Influ A Influenza Type A (PCR) Influenza Type B Ag Neg for Influ B Influenza Type B (PCR) 07/28/19 07/28/19 07/28/19 04:13 04:14 04:14 WBC 19.41 H RBC 4.47 Hgb 12.6 Hct 38.6 MCV 86.4 MCH 28.2 MCHC 32.6 RDW Std Deviation 45.8 RDW Coeff of Mihai 14.6 H Plt Count 233 MPV 10.3 Immature Gran % (Auto) 0.5 Neut % (Auto) 92.1 Lymph % (Auto) 3.1 Turner % (Auto) 4.2 Eos % (Auto) 0.0 Baso % (Auto) 0.1 Immature Gran # (Auto) 0.09 H Neut # (Auto) 17.89 H Lymph # (Auto) 0.60 L Turner # (Auto) 0.82 H Eos # (Auto) 0.00 Baso # (Auto) 0.01 Sodium 133 L Potassium 4.0 Chloride 103 Carbon Dioxide 25 Anion Gap 5.0 BUN 12 Creatinine 1.47 H Est Cr Clr Drug Dosing 69.7 Est GFR ( Amer) 58.9 Est GFR (Non-Af Amer) 50.9 BUN/Creatinine Ratio 8.4 L Glucose 121 H POC Lactic Acid Earle 1.36 Calcium 8.7 Total Bilirubin 1.7 H AST 20 ALT 25 Alkaline Phosphatase 79 Total Protein 7.7 Albumin 3.4 Globulin 4.3 H Albumin/Globulin Ratio 0.8 L Urine Color Urine Appearance Urine pH Ur Specific Dameron Urine Protein Urine Glucose (UA) Urine Ketones Urine Blood Urine Nitrite Urine Bilirubin Urine Urobilinogen Ur Leukocyte Esterase Urine WBC (Auto) Urine RBC (Auto) U Hyaline Cast (Auto) U Epithel Cells (Auto) Urine Bacteria (Auto) Urine Test Influenza Type A Ag Influenza Type A (PCR) Influenza Type B Ag Influenza Type B (PCR) 07/28/19 07/28/19 07/28/19 05:35 05:41 14:19 WBC 22.53 H RBC 4.16 L Hgb 11.7 L Hct 36.3 L MCV 87.3 MCH 28.1 MCHC 32.2 RDW Std Deviation 47.0 H RDW Coeff of Mihai 14.6 H Plt Count 223 MPV 10.0 Immature Gran % (Auto) 0.8 Neut % (Auto) 87.5 Lymph % (Auto) 3.5 Turner % (Auto) 8.2 Eos % (Auto) 0.0 Baso % (Auto) 0.0 Immature Gran # (Auto) 0.18 H Neut # (Auto) 19.70 H Lymph # (Auto) 0.79 L Turner # (Auto) 1.85 H Eos # (Auto) 0.00 Baso # (Auto) 0.01 Sodium 136 Potassium 4.1 Chloride 107 Carbon Dioxide 25 Anion Gap 5.0 BUN 14 Creatinine 0.98 D Est Cr Clr Drug Dosing 102.3 Est GFR ( Amer) 96.2 Est GFR (Non-Af Amer) 83.0 BUN/Creatinine Ratio 14.1 Glucose 129 H POC Lactic Acid Earle 0.90 Calcium 8.9 Total Bilirubin AST ALT Alkaline Phosphatase Total Protein Albumin Globulin Albumin/Globulin Ratio Urine Color Urine Appearance Urine pH Ur Specific Dameron Urine Protein Urine Glucose (UA) Urine Ketones Urine Blood Urine Nitrite Urine Bilirubin Urine Urobilinogen Ur Leukocyte Esterase Urine WBC (Auto) Urine RBC (Auto) U Hyaline Cast (Auto) U Epithel Cells (Auto) Urine Bacteria (Auto) Urine Test Influenza Type A Ag Influenza Type A (PCR) Influenza Type B Ag Influenza Type B (PCR) 07/28/19 07/28/19 14:19 19:07 WBC 13.49 H RBC 3.85 L Hgb 10.7 L Hct 32.9 L MCV 85.5 MCH 27.8 MCHC 32.5 RDW Std Deviation 46.6 H RDW Coeff of Mihai 14.9 H Plt Count 184 MPV 10.2 Immature Gran % (Auto) 0.1 Neut % (Auto) 90.5 Lymph % (Auto) 6.5 Turner % (Auto) 2.7 Eos % (Auto) 0.1 Baso % (Auto) 0.1 Immature Gran # (Auto) 0.02 Neut # (Auto) 12.20 H Lymph # (Auto) 0.88 L Turner # (Auto) 0.36 Eos # (Auto) 0.02 Baso # (Auto) 0.01 Sodium Potassium Chloride Carbon Dioxide Anion Gap BUN Creatinine Est Cr Clr Drug Dosing Est GFR ( Amer) Est GFR (Non-Af Amer) BUN/Creatinine Ratio Glucose POC Lactic Acid Earle Calcium Total Bilirubin AST ALT Alkaline Phosphatase Total Protein Albumin Globulin Albumin/Globulin Ratio Urine Color Urine Appearance Urine pH Ur Specific Dameron Urine Protein Urine Glucose (UA) Urine Ketones Urine Blood Urine Nitrite Urine Bilirubin Urine Urobilinogen Ur Leukocyte Esterase Urine WBC (Auto) Urine RBC (Auto) U Hyaline Cast (Auto) U Epithel Cells (Auto) Urine Bacteria (Auto) Urine Test Influenza Type A Ag Influenza Type A (PCR) Pending Influenza Type B Ag Influenza Type B (PCR) Pending Diagnostic Findings cxr from admission - negative for infiltrates urine/blood cx's negative urine HCG negative PG Care Time/CCT Total # of Minutes Spent Total Time Spent with Patient: Total time spent is greater than 50% in coordination of care (as documented) at patient's floor/unit and/or counseling patient: (1) Migraine Migraine type: other Status migrainosus presence: without status migrainosus Intractability: intractable Qualified Code(s): G43.819 - Other migraine, intractable, without status migrainosus (2) Sepsis Sepsis acute organ dysfunction status: unspecified Sepsis type: sepsis due to unspecified organism Qualified Code(s): A41.9 - Sepsis, unspecified organism (3) Hypotension Hypotension type: unspecified hypotension type Qualified Code(s): I95.9 - Hypotension, unspecified (4) Asthma Asthma severity: mild Asthma persistence: intermittent Asthma complication type: uncomplicated Qualified Code(s): J45.20 - Mild intermittent asthma, uncomplicated
[2019-07-28] MEDS: ENOXAPARIN INJ 40 MG/0.4 ML SYR SQ SCH (19:03)
[2019-07-28] MEDS ORDERED: DAPTOmycin 500 MG VIAL IV SCH (19:30)
--- NOTE | 2019-07-28 19:30 | XRay Report ---
XR chest 2V PA/lateral CLINICAL HISTORY: 18 years-old Female presenting with asthma, cough, fever; eval pneumonia. TECHNIQUE: PA and lateral views of the chest were obtained. COMPARISON: 07/28/2019. FINDINGS: Cardiomediastinal silhouette normal. No focal opacity. No large effusion or pneumothorax. Osseous str uctures normal. Upper abdomen normal. IMPRESSION: No acute cardiopulmonary disease. ACT 112: Negative or not required by law. Electronically signed by: Jas Morris M.D. 07/28/2019 7:29 PM
[2019-07-28] MEDS: SUMAtriptan succinate 50 MG TAB PO PRN (19:39)
[2019-07-28] MEDS: ETHINYL ESTRADIOL PO SCH (19:40)
[2019-07-28] MEDS: DROSPIRENONE PO SCH (19:40)
[2019-07-28 19:50] LABS: Influenza A virus by PCR Neg for Influ A (Neg); Influenza B virus by PCR Neg for Influ B (Neg)
[2019-07-28] MEDS ORDERED: DAPTOmycin 350 MG in SYRINGE 0 ML IV SCH (20:00)
[2019-07-29] MEDS: IBUPROFEN 800 MG TAB PO PRN ×2 (02:50→21:21)
[2019-07-29] MEDS: ACETAMINOPHEN 500 MG TAB PO PRN ×2 (04:34→15:37)
[2019-07-29] MEDS: SUMAtriptan succinate 50 MG TAB PO PRN (04:34)
[2019-07-29 05:54] LABS: Basophils # (auto) 0.01 K/uL (0-0.2); Basophils % (auto) 0.1 %; Eosinophils # (auto) 0.01 K/uL (0-0.5); Eosinophils % (auto) 0.1 %; Hematocrit (blood only) 32.6 % (37-47); Hemoglobin 10.5 g/dL (12.0-16.0); Immature Granulocytes # (auto) 0.05 K/uL (0.00-0.02); Immature Granulocytes % (auto) 0.3 %; Lymphocytes # (auto) 1.02 K/uL (1.2-3.4); Lymphocytes % (auto) 6.6 %; Mean Corpuscular Hemoglobin 27.9 pg (25-34); Mean Corpuscular Hgb Conc 32.2 g/dL (32-36); Mean Corpuscular Volume 86.7 fL (80-100); Mean Platelet Volume 10.2 fL (7.4-10.4); Monocytes # (auto) 1.74 K/uL (0.11-0.59); Monocytes % (auto) 11.2 %; Neutrophils # (auto) 12.66 K/uL (1.4-6.5); Neutrophils % (auto) 81.7 %; Platelet Count 190 K/uL (130-400); RDW Standard Deviation 48.1 fL (36.4-46.3); Red Blood Count 3.76 M/uL (4.2-5.4); White Blood Count 15.49 K/uL (4.8-10.8)
[2019-07-29] MEDS: ALBUTEROL 0.083% NEBU SOLN 3 ML VIAL NEB PRN ×2 (05:54→19:33)
[2019-07-29 06:51] LABS: BUN Creatinine Ratio 10.5 (10-20); Calcium 8.3 mg/dl (8.5-10.1); Creatinine Clr Calc Pharmacy 125.1 ml/min; Est GFR (African American) 121.2; Est GFR (Non-African American) 104.6; Potassium 3.5 mmol/L (3.5-5.1)
[2019-07-29] MEDS: FERROUS SULFATE 325 MG TAB PO SCH (11:13)
[2019-07-29] MEDS: ERTAPENEM SODIUM 1,000 MG in SODIUM CHLORIDE 0.9% 50 ML IV SCH (11:16)
[2019-07-29] MEDS: ETHINYL ESTRADIOL PO SCH ×2 (11:22→21:23)
[2019-07-29] MEDS: DROSPIRENONE PO SCH ×2 (11:22→21:23)
[2019-07-29] MEDS: ONDANSETRON INJ 2 MG/ML 2 ML VIAL IV PRN ×2 (12:19→17:08)
[2019-07-29] MEDS ORDERED: SUMAtriptan succinate 6 MG/0.5 ML VIAL SQ ONE (15:35)
--- NOTE | 2019-07-29 20:32 | Hospitalist Progress Note ---
Date of Service July 29, 2019 Assessment & Plan (1) Pyelonephritis: Right sided pyelonephritis with sepsis. IMPROVING. Urine cx - gram neg asad. Blood cx's negative. STOP daptomycin. Cont ertapenem - narrow once full urine cx result is back. BPs improved today. Leukocytosis improved. BMP wnl. Stop IV fluids - patient is drinking. Pain control for right pyelonephritis. (2) Sepsis: IMPROVING. Had borderline severe sepsis shortly after admission. Source - urine (UTI/pyelo). 2nd to GNR pathogen. No pneumonia or influenza based on testing. Sepsis improving with IV abx, supportive care and time. Blood cx's thus far negative. Cont ertapenem. (3) Hypotension: as above in "pyelonephritis" and "sepsis" resolved Creatinine normal (4) Acute kidney injury: Resolved. This was sepsis-associated. Renal u/s w/o obstruction or stones. (5) Migraine: imitrex 50mg po q2h prn motrin 800mg q6h prn tylenol prn if above fail to improve her h/a then imitrex injection 6mg SC prn (6) Asthma: Pt states she has needed to use her albuterol but lungs are clear on exam. Encouraged incentive spirometry use. If patient continues with any cardiopulmonary symptoms consider CT chest r/o PE (recently started on OCPs). (7) Total bilirubin, elevated: Could be Gilbert's. Repeat tomorrow am. (8) DVT prophylaxis: in light of OCP use - lovenox 40mg daily mother updated extensively at bedside today; questions answered progressing Subjective patient had "rough night". fevers, chills, cough/asthma symptoms (needed albuterol). appetite is poor today. when not having fevers/chills she feels better. right flank pain still present but improved. mother at bedside - questions answered. Review of Systems Constitutional: + fever, + chills, + fatigue and + anorexia Respiratory: + dyspnea (occasional ); no cough and no pain on inspiration Cardiovascular: no chest pain Gastrointestinal: + abdominal pain and + nausea; no vomiting Neurologic: + headache(s) Physical Exam Constitutional: + ill appearing (but looks better today ) and + obese; no acute distress and no altered mental status ENMT: external ear and nose normal, oropharynx normal Mouth: oral mucous membranes not dry Respiratory: normal respiratory effort, lungs clear to auscultation Cardiovascular: Rate/Rhythm: regular rate and regular rhythm Heart Sounds: normal S1 and normal S2; no murmur Vessels: posterior tibial pulses present and dorsalis pedis pulses present; no JVD Extremities: no edema Gastrointestinal (Abdomen): Inspection/Auscultation: normal bowel sounds; abdomen not distended Percussion/Palpation: + abdomen tender (right flank (minimal)) and abdomen soft; no hepatosplenomegaly Psychiatric: A+Ox3, euthymic affect Results & Data Vital Signs (Past 12 Hours) Vital Signs Temp Pulse Pulse Pulse Resp BP BP 07/29/19 19:33 96 H 16 07/29/19 19:06 36.8 C 91 H 18 100/67 07/29/19 16:55 97 H 07/29/19 14:41 36.7 C 99 H 20 98/64 L 07/29/19 11:24 36.9 C 102 H 18 93/60 L Pulse Ox 07/29/19 19:33 98 07/29/19 19:06 100 07/29/19 16:55 07/29/19 14:41 98 07/29/19 11:24 96 Laboratory Results Laboratory Results - last 24 hr 07/29/19 07/29/19 05:26 05:26 WBC 15.49 H RBC 3.76 L Hgb 10.5 L Hct 32.6 L MCV 86.7 MCH 27.9 MCHC 32.2 RDW Std Deviation 48.1 H RDW Coeff of Mihai 15.0 H Plt Count 190 MPV 10.2 Immature Gran % (Auto) 0.3 Neut % (Auto) 81.7 Lymph % (Auto) 6.6 [place] % (Auto) 11.2 Eos % (Auto) 0.1 Baso % (Auto) 0.1 Immature Gran # (Auto) 0.05 H Neut # (Auto) 12.66 H Lymph # (Auto) 1.02 L [place] # (Auto) 1.74 H Eos # (Auto) 0.01 Baso # (Auto) 0.01 Sodium 137 Potassium 3.5 Chloride 112 H Carbon Dioxide 21 Anion Gap 4.0 BUN 8 D Creatinine 0.81 Est Cr Clr Drug Dosing 125.1 Est GFR ( Amer) 121.2 Est GFR (Non-Af Amer) 104.6 BUN/Creatinine Ratio 10.5 Glucose 109 H Calcium 8.3 L Diagnostic Findings blood cx's neg urine cx w/ GNR PG Care Time/CCT Total # of Minutes Spent Total Time Spent with Patient: Total time spent is greater than 50% in coordination of care (as documented) at patient's floor/unit and/or counseling patient: (1) Sepsis Sepsis acute organ dysfunction status: unspecified Sepsis type: sepsis due to unspecified organism Qualified Code(s): A41.9 - Sepsis, unspecified organism (2) Hypotension Hypotension type: unspecified hypotension type Qualified Code(s): I95.9 - Hypotension, unspecified (3) Migraine Migraine type: other Status migrainosus presence: without status migrainosus Intractability: intractable Qualified Code(s): G43.819 - Other migraine, intractable, without status migrainosus (4) Asthma Asthma severity: mild Asthma persistence: intermittent Asthma complication type: uncomplicated Qualified Code(s): J45.20 - Mild intermittent asthma, uncomplicated
[2019-07-29] MEDS: ENOXAPARIN INJ 40 MG/0.4 ML SYR SQ SCH (21:22)
[2019-07-30 05:37] LABS: Hematocrit (blood only) 28.9 % (37-47); Hemoglobin 9.3 g/dL (12.0-16.0); Mean Corpuscular Hemoglobin 27.8 pg (25-34); Mean Corpuscular Hgb Conc 32.2 g/dL (32-36); Mean Corpuscular Volume 86.5 fL (80-100); Mean Platelet Volume 10.1 fL (7.4-10.4); Platelet Count 209 K/uL (130-400); RDW Coefficient of Variation 15.3 % (11.5-14.5); RDW Standard Deviation 48.9 fL (36.4-46.3); Red Blood Count 3.34 M/uL (4.2-5.4); White Blood Count 10.49 K/uL (4.8-10.8)
[2019-07-30] MEDS: ACETAMINOPHEN 500 MG TAB PO PRN ×2 (05:53→19:15)
[2019-07-30 06:01] LABS: BUN Creatinine Ratio 9.4 (10-20); Bilirubin Direct 0.3 mg/dl (0-0.2); Calcium 8.3 mg/dl (8.5-10.1); Creatinine Clr Calc Pharmacy 131.6 ml/min; Est GFR (African American) 128.8; Est GFR (Non-African American) 111.1; Potassium 3.8 mmol/L (3.5-5.1)
[2019-07-30 06:06] LABS: Bilirubin,Total 0.6 mg/dl (0.2-1)
[2019-07-30 06:12] LABS: Estimated Average Glucose 111 mg/dl; Hemoglobin A1C 5.5 % (4.5-5.6)
[2019-07-30] MEDS: CIPROFLOXACIN 500 MG TAB PO SCH ×2 (08:38→20:41)
[2019-07-30] MEDS: LACTOBACILLUS ACIDOPHILUS (FLORANEX) TAB PO SCH ×3 (08:38→17:32)
[2019-07-30] MEDS: FERROUS SULFATE 325 MG TAB PO SCH (08:39)
[2019-07-30] MEDS: SUMAtriptan succinate 50 MG TAB PO PRN (11:51)
--- NOTE | 2019-07-30 15:54 | XRay Report ---
XR chest 2V PA/lateral CLINICAL HISTORY: 18 years-old Female presenting with dyspnea, recent sepsis; eval for pulm edema. TECHNIQUE: PA and lateral views of the chest were obtained. COMPARISON: 07/28/2019. FINDINGS: Cardiomediastinal silhouette normal. Lungs and pleural spaces clear. Osseous structures normal. Upper abdomen normal. IMPRESSION: 1. No acute cardiopulmonary disease. ACT 112: Negative or not required by law. Electronically signed by: Jas Morris M.D. 07/30/2019 3:53 PM
[2019-07-30] MEDS ORDERED: POTASSIUM CHLORIDE 20 MEQ TABCR PO STA (16:49)
[2019-07-30] MEDS ORDERED: FUROSEMIDE 20 MG TAB PO ONE (16:50)
[2019-07-30] MEDS ORDERED: MAGNESIUM OXIDE 400 MG TAB PO ONE (16:50)
--- NOTE | 2019-07-30 17:46 | Hospitalist Progress Note ---
Date of Service July 30, 2019 Assessment & Plan (1) Pyelonephritis: Right sided pyelonephritis with sepsis. Clinically IMPROVING. WBC count now normal. Blood cx's negative. Right flank pain nearly resolved. Urine cx - e.coli. Stop ertapenem; change to PO cipro 500mg BID x 12 more days. Add probiotics. (2) Sepsis: IMPROVING/resolved. Had borderline severe sepsis shortly after admission. Source - urine (UTI/pyelo). 2nd to e.coli. No pneumonia or influenza based on testing. Change ertapenem to cipro PO as above. (3) Hypotension: as above in "pyelonephritis" and "sepsis" resolved; BPs normal Creatinine normal (4) Acute kidney injury: Resolved. This was sepsis-associated. Renal u/s w/o obstruction or stones. (5) Migraine: imitrex 50mg po q2h prn or imitrex 6mg SC prn motrin 800mg q6h prn tylenol prn if above fail then consider steroids (6) Asthma: I don't believe that her dyspnea is asthma-related. Albuterol hasn't helped, and no wheezing on exam. See "dyspnea" below. (7) Total bilirubin, elevated: resolved. t.bili normal. does she have Gilbert's? this would need to be followed up as outpatient. (8) Dyspnea: Repeat cxr today w/o any infiltrates. However, her weight is up about 5-6 pounds from her baseline weight. She could have mild pulmonary edema as she had considerable volume resuscitation in the setting of her sepsis despite her normal lung exam and normal cxr. Will give 10mg PO lasix x 1 (and K/mag supplement) and re-eval in am. She just started taking OCPs earlier this week. However, my suspicion of PE is low. If her dyspnea complaints persisted, however, would need to consider CTA chest to r/o PE. (9) DVT prophylaxis: in light of OCP use - lovenox 40mg daily mother/father extensively updated at bedside today over multiple visits hopeful for d/c tomorrow on Thursday Subjective patient overall feeling much better today. main complaint is that of ongoing migraine headache. used imitrex SC yesterday and PO imitrex today with relief. having some light sensitivity. mild nausea; no emesis or diarrhea. minimal right flank pain. ambulating. took shower independently today. drinking fluids. overnight she took 1 albuterol neb treatment for mild dyspnea; this was last pm. she states the dyspnea comes on while laying in bed. no cough or wheezing; no asthma symptoms. she was not sure if albuterol helped. both parents at bedside today; questions answered. they plan to drive [place] back to [place] when she is discharged. Review of Systems Constitutional: + fever (overnight but only occurred once) and + anorexia; no chills Respiratory: as per Subjective / HPI; no cough Cardiovascular: no chest pain and no chest pain at rest Gastrointestinal: + nausea; no abdominal pain, no vomiting and no diarrhea/loose stools Genitourinary: no hematuria Physical Exam Constitutional: + obese; no acute distress, not ill appearing and no altered mental status looks MUCH better today ENMT: external ear and nose normal, oropharynx normal Respiratory: normal respiratory effort, lungs clear to auscultation Cardiovascular: Rate/Rhythm: regular rate and regular rhythm Heart Sounds: normal S1 and normal S2; no murmur Vessels: posterior tibial pulses present and dorsalis pedis pulses present; no JVD Extremities: no edema Gastrointestinal (Abdomen): Inspection/Auscultation: normal bowel sounds; abdomen not distended Percussion/Palpation: abdomen soft; abdomen nontender and no hepatosplenomegaly Psychiatric: A+Ox3, euthymic affect Results & Data Vital Signs (Past 12 Hours) Vital Signs Temp Pulse Pulse Resp BP BP Pulse Ox 07/30/19 15:41 37.0 C 88 20 121/76 93 07/30/19 11:00 36.6 C 86 18 113/73 97 07/30/19 08:00 89 07/30/19 07:19 36.9 C 95 H 18 98/58 L 100 07/30/19 05:49 38.1 C H Laboratory Results Laboratory Results - last 24 hr 07/30/19 07/30/19 07/30/19 05:23 05:23 05:23 WBC 10.49 RBC 3.34 L Hgb 9.3 L Hct 28.9 L MCV 86.5 MCH 27.8 MCHC 32.2 RDW Std Deviation 48.9 H RDW Coeff of Mihai 15.3 H Plt Count 209 MPV 10.1 Sodium 137 Potassium 3.8 Chloride 110 H Carbon Dioxide 24 Anion Gap 3.0 BUN 7 Creatinine 0.77 Est Cr Clr Drug Dosing 131.6 Est GFR ( Amer) 128.8 Est GFR (Non-Af Amer) 111.1 BUN/Creatinine Ratio 9.4 L Glucose 81 Estimat Average Glucose 111 Hemoglobin A1c 5.5 Calcium 8.3 L Total Bilirubin 0.6 Direct Bilirubin 0.3 H Diagnostic Findings blood cx's neg urine cx - >100,000 CFU e. coli - nearly pansensitive PG Care Time/CCT Total # of Minutes Spent Total Time Spent with Patient: Total time spent is greater than 50% in coordination of care (as documented) at patient's floor/unit and/or counseling patient: (1) Sepsis Sepsis acute organ dysfunction status: unspecified Sepsis type: sepsis due to unspecified organism Qualified Code(s): A41.9 - Sepsis, unspecified organism (2) Hypotension Hypotension type: unspecified hypotension type Qualified Code(s): I95.9 - Hypotension, unspecified (3) Migraine Migraine type: other Status migrainosus presence: without status migrainosus Intractability: intractable Qualified Code(s): G43.819 - Other migraine, intractable, without status migrainosus (4) Asthma Asthma severity: mild Asthma persistence: intermittent Asthma complication type: uncomplicated Qualified Code(s): J45.20 - Mild intermittent asthma, uncomplicated (5) Dyspnea Dyspnea type: unspecified Qualified Code(s): R06.00 - Dyspnea, unspecified
[2019-07-30] MEDS: ENOXAPARIN INJ 40 MG/0.4 ML SYR SQ SCH (20:41)
[2019-07-30] MEDS: ETHINYL ESTRADIOL PO SCH (21:45)
[2019-07-30] MEDS: DROSPIRENONE PO SCH (21:45)
[2019-07-31] MEDS: ACETAMINOPHEN 500 MG TAB PO PRN ×2 (03:18→12:19)
[2019-07-31 06:24] LABS: BUN Creatinine Ratio 9.5 (10-20); Calcium 8.7 mg/dl (8.5-10.1); Creatinine Clr Calc Pharmacy 131.2 ml/min; Est GFR (African American) 128.8; Est GFR (Non-African American) 111.1; Potassium 3.7 mmol/L (3.5-5.1)
[2019-07-31] MEDS: CIPROFLOXACIN 500 MG TAB PO SCH (08:48)
[2019-07-31] MEDS: FERROUS SULFATE 325 MG TAB PO SCH (08:49)
[2019-07-31] MEDS: LACTOBACILLUS ACIDOPHILUS (FLORANEX) TAB PO SCH ×2 (08:49→12:20)
--- NOTE | 2019-07-31 11:46 | Discharge Summary ---
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 Patient reported fevers at home for the last three days associated with chills/sweats/body aches and rigors. Also with nausea, headache, right suprapubic discomfort and right sided back pain. She denied dysuria/frequency/urgency. Had an episode of urinary incontinence prior to arrival to the ER. Last fever this evening, 104 F. Principal Diagnosis sepsis 2nd to e.coli UTI/right-sided pyelonephritis Discharge Exam Constitutional + obese; no acute distress, not ill appearing and no altered mental status ENMT external ear and nose normal, oropharynx normal Mouth: oral mucous membranes not dry Respiratory normal respiratory effort, lungs clear to auscultation Cardiovascular Rate/Rhythm: regular rate and regular rhythm Heart Sounds: normal S1 and normal S2; no murmur Vessels: posterior tibial pulses present and dorsalis pedis pulses present; no JVD Extremities: no edema Gastrointestinal (Abdomen) Inspection/Auscultation: normal bowel sounds; abdomen not distended Percussion/Palpation: abdomen soft; abdomen nontender and no hepatosplenomegaly Musculoskeletal no right flank tenderness to palpation Psychiatric A+Ox3, euthymic affect Discharge Data Allergies Allergy/AdvReac Type Severity Reaction Status Date / Time cefuroxime Allergy Mild Swelling Verified 07/28/19 04:08 and redness Ordered Studies 1. US renal/bladder retroperitoneal complete - no kidney or ureteral stones seen; no hydronephrosis; no renal abnormalities. No renal abscess of either kidney. 2. multiple chest x-rays - normal. No infiltrates. 3. blood cultures negative Hospital Course (1) Pyelonephritis: Right sided pyelonephritis with sepsis. Urine culture grew e.coli. Blood cultures were negative during her stay. She clinically improved with normalization of her WBC count, resolution of her right flank pain, and improved fever curve. She received 2+ days of IV ertapenem then was transitioned to oral cipro. She will complete 11 more days of oral cipro at discharge. At discharge she was hydrating well, eating fair, and ambulating. She was counseled on the normal course of resolving pyelonephritis. She and her parents were advised that she could potentially have another 1-2 days of low-grade fever post-discharge. Furthermore, if she were to develop fever/chills/worsening flank pain later on into her cipro course she could be developing a renal abscess. If that were to occur she would need to seek urgent medical attention and potent ially have a CT scan at that time. Otherwise, she should follow-up with her PCP upon return to [place] (her home state) within 2-3 days for a post-hospitalization check. (2) Sepsis: Had borderline severe sepsis shortly after admission. Required copious fluid resuscitation for low / low-normal BPs. She had complicating acute kidney injury (see below) in the context of her sepsis. Source - urine (UTI/pyelo). 2nd to e.coli. No pneumonia or influenza based on testing. Blood cultures were negative while hospitalized. Initially received IV ertapenem then was transitioned to cipro orally as detailed above. Sepsis fully resolved with the above measures. (3) Hypotension: 2nd to sepsis due to right-sided pyelonephritis/UTI. Resolved with IV fluids and IV antibiotics. (4) Acute kidney injury: Resolved. This was sepsis-associated. Peak Cr was 1.47, improving to 0.77 at discharge. Renal u/s w/o obstruction or stones. (5) Migraine: Had acute migraine headache during her stay. Used combination of imitrex (both SC and orally), motrin, and tylenol for abortive treatment. Headache was improved by the time of discharge. She was given a prescription for oral imitrex to be used PRN. (6) Asthma: Patient complained of mild dyspnea during her stay. Given her history of asthma she was provided albuterol nebs with only partial relief. Multiple chest x-rays failed to show pneumonia, edema, effusions, etc. See below in "dyspnea." (7) Total bilirubin, elevated: Peak total bilirubin was 1.7. This normalized with IV fluids. This may have been due to significant dehydration or perhaps a Gilbert's syndrome. If Gilbert's this would not require treatment given it is a benign condition. Would recommend that her PCP investigate old records/labs to see if she has ever had elevated total bilirubin in the past to suggest Gilbert's. She had no symptoms/signs of biliary tract disease while hospitalized. (8) Dyspnea: Multiple chest x-rays (3 separate studies) during her stay were normal. O2 sats during her stay were normal. She did receive a significant amount of fluid for her sepsis and her weight was up about 5-6 pounds from her baseline weight. She could have had mild pulmonary edema in the setting of her sepsis despite her normal lung exam (she never had adventitious sounds/rales) and normal chest films. Thus, 1 dose of lasix orally was given. This did resolve her symptoms and she had a drop in her weight by ~3 pounds. She ambulated the unit multiple times on day of discharge and she had no dyspnea on exertion. Although she had just started taking oral contraceptives 2-3 days prior to her hospitalization my suspicion for PE was very low and thus CTA chest was deferred. If the patient was to continue complaining of dyspnea, however, a CTA chest would be needed to investigate PE and other causes of this symptom. (9) DVT prophylaxis: Patient received lovenox 40mg daily while hospitalized. Since the patient would be traveling by car back to [place] with her parents following her discharge I recommended that she stop every 60-90 minutes to walk and stretch. Total Time Total Time Spent Total Time Spent (In Minutes): 40 Total Time Includes: Examination of the Patient, Discharge Planning and Medication Reconciliation Discharge Plan Discharge Items Patient Disposition: Home - Self-Care Reason For Visit: UTI (urinary tract infection) Discharge Diagnosis: 1. UTI - resolved 2. right-sided pyelonephritis (kidney infection) - resolving 3. sepsis due to UTI/pyelonephritis - resolved 4. migraine headache - improved Activity: As commented below Activity Comment: take it easy for the next 1-2 days, then gradually increase activities Lifting: Gradually increase as tolerated Bathing: No limitations Exercise/Sports: Wait until after follow-up appointment Driving/Machine Use: Resume 3 days after discharge Non-emergency contact: Primary Care Provider Call non-emergency contact if: you have any medication questions, your symptoms worsen, your pain is not controlled, your pain is worsening, your pain is concerning for you and your temperature is above 101 Follow-up/Referrals: [facility] [Primary Care Provider] - Diet: Regular Addtl Attending Provider Instructions: You were treated for sepsis due to e.coli UTI / right-sided pyelonephritis (kidney infection). You improved with IV fluids, IV antibiotics, and time. Your elevated white blood cell count, a marker of infection, returned to normal with the above measures. Your blood cultures remained negative during the stay (you did not grow bacteria in the blood). A kidney ultrasound did not show any abnormalities of your urinary tract nor any obvious kidney stones. During the stay you also had migraine headache which required use of imitrex for relief of symptoms. At this time we recommend: 1. ciprofloxacin antibiotic - 500mg twice daily for 11 more days; take your first dose tonight. 2. probiotics once daily for 14 days; this may help reduce the chances of getting diarrhea from the ciprofloxacin. 3. imitrex (sumatriptan) 50mg every 2 hours as needed for migraine headache; max 4 doses in 24 hours. 4. tylenol 500mg-1000mg every 4-6 hours as needed for fever or pain. You can safely take up to 3000mg in a 24-hour period. 5. motrin/ibuprofen 600mg-800mg every 6-8 hours as needed for fever, pain or headache. Take with food. 6. good hydration over the next 2-3 days as you continue to recover from your illness. 7. INCREASE your ferrous sulfate (iron) to twice a day. Take for 2-3 months for low iron/anemia. Have your doctor recheck your blood counts and iron levels sometime in the next 4-6 weeks. 8. [address] your drive back to [place] please stop every 60-90 minutes to stretch your legs and walk. You are at higher risk of DVT blood clots in your legs because of recent initiation of control pills, your recent hospital stay, and the travel. Sepsis and pyelonephritis are more serious than just a standard/typical UTI. Thus, it can take several days to fully resolve the fevers from pyelonephritis. It is not uncommon to have intermittent fevers for 4-5 days even after being on the right antibiotics. You could have low-grade fever for another 24-36 hours following discharge. HOWEVER, if later this week you begin to feel poorly again, develop recurrent/worsening right flank pain, you have fevers over 101 degrees, etc please seek medical attention right away. At that point you could potentially need a CAT scan to ensure you have not developed a kidney abscess. Your kidney ultrasound did not show this earlier this stay. Additionally, please know that the ciprofloxacin antibiotic may interfere with the effectiveness of your control pill. Thus, if you are sexually active, you must use a 2nd form of back-up control until your next menstrual cycle. Follow-up -- see your wellness director at [facility] in [facility] ideally on Thursday AM, 08/02/19 I will send a discharge summary to your doctors there Return to any hospital if -- * you are having recurrent/worsening right flank pain / right back pain * you have intractable migraine headache (no response to the imitrex) * you have vomiting and can't keep food/liquids/antibiotics down * you develop severe diarrhea * you have persistent fevers over 101 degrees despite your antibiotics * you develop severe abdominal pain * any other concerns Pending Studies at Discharge: No Stand-Alone Forms: My [facility], Smoking Cessation Medications and DC Order Prescriptions: New sumatriptan succinate 50 mg Tablet 50 mg PO Q2H PRN (Reason: migraine headache) Qty: 10 RF: 0 ciprofloxacin HCl 500 mg Tablet 500 mg PO BID 11 Days Qty: 22 RF: 0 Saccharomyces boulardii 250 mg capsule 250 mg PO DAILY 14 Days Qty: 14 RF: 0 Continued acetaminophen [Tylenol Extra Strength] 500 mg Tablet 1,000 mg PO Q6H PRN (Reason: Fever Or Pain) RF: 0 ibuprofen [Motrin IB] 200 mg Tablet 400 mg PO Q6H PRN (Reason: Fever Or Pain) RF: 0 drospirenone-ethinyl estradiol 3-0.03 mg Tablet 1 tab PO DAILY RF: 0 Changed ferrous sulfate [iron] 325 mg (65 mg iron) Tablet 325 mg PO BID Qty: 60 RF: 2 Discharge Orders: Discharge Order (Routine); Ordered 07/31/19 Ordered By: Raul Garcia/Other Patient Handouts: UTI Admission Data Admit Date/Time: 07/28/19 18:35 Attending Provider: Raul Mejia Admit Provider: Shena Ramsay Primary Care Provider: [facility] [place] [facility] Other Providers: Shena Ramsay Other Interventions: Discharge Summary Assessment (RN) Last Done: 07/31/19 12:23 DC Date/Time DO NOT enter until pt leaves facility: 07/31/19 13:05
== END 2019-07-31 13:05 | disposition home or self-care (01) | DRG 872 ==
LOC: ED 03:20 → 2N 03:20 → SUATTDRO 06:15 → 2N 06:37